=== PATIENT | female | born 2000 | race Two or more races ===

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

== ENCOUNTER 2023-03-13 15:30 | Emergency (ER) | payer MEDICAID, OTHER ==
[~2023-03-13] VITALS: Ht 134.6 cm; Wt 45.4 kg
[~2023-03-13 15:30] MED LIST: NITR100C6 PO
[2023-03-13 15:46] VITALS: BP 115/71; TEMP 98.4
[2023-03-13] MEDS ORDERED: BENZ-13 PO (17:16)
[2023-03-13 18:35] VITALS: O2SAT 98
== END 2023-03-13 18:37 | disposition home or self-care (01) ==
LOC: ER 15:35
DX: J06.9 Acute upper respiratory infection, unspecified (principal); R05.9 Cough, unspecified; J02.9 Acute pharyngitis, unspecified; Z79.899 Other long term (current) drug therapy; Z20.822 Contact with and (suspected) exposure to COVID-19
CPT/HCPCS: 86403-TC

== ENCOUNTER 2024-08-29 16:01 | Emergency (ER) | payer OTHER ==
[~2024-08-29] VITALS: Ht 142.2 cm; Wt 45.4 kg
[~2024-08-29 16:01] MED LIST changes: +BENZ-13 PO
[2024-08-29] MEDS ORDERED: SODI88SP18 BNOSTRILS (17:12)
[2024-08-29] MEDS ORDERED: IBUP-1488 PO (17:12)
[2024-08-29] MEDS ORDERED: ACET325T53 PO (17:12)
[2024-08-29 17:59] VITALS: BP 132/70; TEMP 98.9; O2SAT 98
== END 2024-08-29 17:30 | disposition home or self-care (01) ==
LOC: ER 16:34
DX: R04.0 Epistaxis (principal); R51.9 Headache, unspecified

== ENCOUNTER 2024-10-06 08:49 | Emergency (ER) | payer OTHER ==
[~2024-10-06] VITALS: Ht 134.6 cm; Wt 45.4 kg
[~2024-10-06 08:49] MED LIST changes: +ACET325T53 PO; +IBUP-1488 PO; +SODI88SP18 BNOSTRILS
[2024-10-06 10:58] VITALS: BP 110/70; TEMP 98.5; O2SAT 98
== END 2024-10-06 10:58 | disposition home or self-care (01) ==
LOC: ER 08:49
DX: R04.0 Epistaxis (principal)

== ENCOUNTER 2025-01-01 19:43 | Emergency (ER) | payer OTHER ==
[~2025-01-01] VITALS: Ht 144.8 cm; Wt 46.7 kg
[2025-01-01 21:08] VITALS: TEMP 98.2
[2025-01-01] MEDS ORDERED: MORPHINE SULFATE INJ 4 MG/ML DISP.SYRIN ONE (21:24)
[2025-01-01] MEDS ORDERED: ONDANSETRON HCL/PF 4 MG/2 ML VIAL ONE (21:24)
[2025-01-01] MEDS: IV NS 0.9% 1,000 ML BAG IV ONE (21:49)
[2025-01-01] MEDS: ONDANSETRON HCL/PF 4 MG/2 ML VIAL IVP ONE (21:49)
[2025-01-01] MEDS: MORPHINE SULFATE INJ 2 MG/ML DISP.SYRIN IV ONE (21:49)
[2025-01-01 21:52] LABS: APPEARANCE,URINE SLIGHTLY CLOUDY (CLEAR); BLOOD, URINE NEGATIVE Ery/uL (NEGATIVE); LEUKOCYTE ESTERASE ,URINE NEGATIVE (NEGATIVE); NITRITE, URINE NEGATIVE (NEGATIVE); UGLUCOSE NEGATIVE (NEGATIVE)
[2025-01-01 21:55] LABS: PLATELET COUNT (AUTO) 326 K/uL (150-450); RED BLOOD CELL COUNT(AUTO) 4.31 MIL/uL (4.0-5.2); RED CELL DISTRIBUTION WIDTH 13.1 % (11.5-15.0); WHITE BLOOD COUNT (AUTO) 7.6 K/uL (4.3-11.0)
[2025-01-01 22:05] LABS: CALCIUM, SERUM 9.8 mg/dL (8.5-10.1); CREATININE 0.4 mg/dL (0.6-1.3); SODIUM SERUM 142.0 mmol/L (136-145); UREA NITROGEN, BLOOD 8.0 mg/dL (7-18)
[2025-01-01 22:06] LABS: ADD URINE CULTURE YES; SQUAMOUS EPITHELIAL CELL,UR Moderate /HPF (None Seen)
[2025-01-01 22:07] LABS: URINE AMORPHOUS PHOSPHATES Many /HPF (None Seen)
[2025-01-01 22:16] LABS: ASPARTATE AMINOTRANSFERASE 46.0 U/L (15-37); PREGNANCY TEST SERUM QUAN 0.0 mIU/mL (0-6); TOTAL PROTEIN, SERUM 7.9 g/dL (6.4-8.2)
[2025-01-01 22:30] VITALS: BP 121/70; O2SAT 99
== END 2025-01-01 23:04 | disposition home or self-care (01) ==
LOC: ER 19:49
DX: R10.20 Pelvic and perineal pain unspecified side (principal); R30.0 Dysuria
CPT/HCPCS: 99285; 96374; 76856; 96361; 96375; 85025; 80048; 87086; 80076; 81001; 36415; 84702; J2270; J2405

== ENCOUNTER 2025-01-18 10:05 | Emergency (ER) | payer OTHER ==
[~2025-01-18] VITALS: Ht 134.6 cm; Wt 46.7 kg
[2025-01-18 10:15] VITALS: TEMP 98.6
[2025-01-18] MEDS ORDERED: dexaMETHasone SOD PHOSPHATE 1 ML ONE (10:30)
[2025-01-18] MEDS: dexaMETHasone SOD PHOSPHATE 10 MG/ML VIAL MC STA (10:46)
[2025-01-18] MEDS ORDERED: AZIT500T4 PO (12:16)
[2025-01-18 12:32] VITALS: BP 122/64; O2SAT 98
== END 2025-01-18 12:33 | disposition home or self-care (01) ==
LOC: ER 10:12
DX: J04.0 Acute laryngitis (principal)
CPT/HCPCS: 99283; 70360; J1100